=== PATIENT | female | born 2000 | race Hispanic/Latino ===

== ENCOUNTER 2023-11-10 13:11 | Emergency (ER) | payer MEDICAID, OTHER ==
[~2023-11-10] VITALS: Ht 167.6 cm; Wt 76.2 kg
[~2023-11-10 13:11] MED LIST: CEPH500B PO; POLY17PO4 PO
[2023-11-10 14:11] LABS: APPEARANCE,URINE CLEAR (CLEAR); BILIRUBIN,URINE NEGATIVE (NEGATIVE); COLOR,URINE YELLOW (YELLOW); GLUCOSE, URINE (UA) NEGATIVE (NEGATIVE); KETONES,URINE NEGATIVE (NEGATIVE); LEUKOCYTE ESTERASE ,URINE NEGATIVE Leu/uL (NEGATIVE); NITRATE,URINE NEGATIVE (NEGATIVE); OCCULT BLOOD,URINE LARGE (NEGATIVE); PH,URINE 6.5 (5.0-8.0); PROTEIN,URINE 10 mg/dL (NEGATIVE); UROBILINOGEN,URINE 0.2 mg/dL (0.2-1.0)
[2023-11-10 14:22] LABS: BACTERIA,URINE RARE /HPF (None Seen); MUCUS,URINE RARE LPF (None Seen); RBC,URINE 51-100 /HPF (0-1); SQUAMOUS EPITHELIAL CELL,UR FEW /HPF (0-2)
[2023-11-10 14:28] LABS: HCG,QUALITATIVE URINE NEGATIVE (NEGATIVE)
[2023-11-10 14:43] VITALS: BP 123/78; PULSE 78; RESP 18; O2SAT 98
== END 2023-11-10 14:44 | disposition home or self-care (01) ==
LOC: EDH 13:11
DX: N93.8 Other specified abnormal uterine and vaginal bleeding (principal); Z79.899 Other long term (current) drug therapy
CPT/HCPCS: 81001; 81025

== ENCOUNTER 2024-02-23 13:13 | Emergency (ER) | payer SELFPAY ==
[~2024-02-23] VITALS: Ht 167.6 cm; Wt 78.5 kg
[2024-02-23 13:35] LABS: SARS-CoV-2, RNA, NAAT NEGATIVE SARS CoV-2 (NEGATIVE)
[2024-02-23 13:39] LABS: INFLUENZA TYPE B Negative For Type B (NEGATIVE)
[2024-02-23 13:47] LABS: INFLUENZA TYPE A Positive For Type A (NEGATIVE)
[2024-02-23 13:58] LABS: BASOPHILS # (AUTO) 0.01 K/uL (0.00-0.20); BASOPHILS % (AUTO) 0.2 % (0.0-5.0); EOSINOPHILS # (AUTO) 0.02 K/uL (0.00-0.70); EOSINOPHILS % (AUTO) 0.3 % (0.0-8.0); HEMATOCRIT 37.8 % (36-48); IMMATURE GRANULOCYTE ABSOLUTE 0.01 K/uL (0-1); LYMPHOCYTES # (AUTO) 0.1 K/uL (1.0-4.8); LYMPHOCYTES % (AUTO) 2.2 % (21.0-51.0); MEAN CORPUSCULAR HEMOGLOBIN 32.5 pg (27.0-33.0); MEAN CORPUSCULAR HGB CONC 34.9 g/dL (32.0-36.0); MEAN CORPUSCULAR VOLUME 93.1 fL (80-100); MONOCYTES # (AUTO) 0.4 K/uL (0.1-1.0); MONOCYTES % (AUTO) 6.1 % (3.0-13.0); NEUTROPHILS # (AUTO) 5.4 K/uL (1.8-7.7); PLATELET COUNT (AUTO) 222 K/uL (130-400); RED BLOOD CELL COUNT(AUTO) 4.06 MIL/uL (4.00-5.50); RED CELL DISTRIBUTION WIDTH 11.7 % (11.0-15.5); WHITE BLOOD COUNT (AUTO) 5.9 K/uL (4.8-10.8)
[2024-02-23] MEDS: 0.9%NACL 1000ML 1,000 ML IV ONE (14:18)
[2024-02-23] MEDS: acetaMINOPHEN 500 MG TABLET PO ONE (14:18)
[2024-02-23 14:39] LABS: POTASSIUM 3.2 mmol/L (3.5-5.1)
--- NOTE | 2024-02-23 14:52 | HMCIMG ---
US OB <14 WEEKS HISTORY: early TECHNIQUE: Real-time pelvic ultrasound was performed. FINDINGS: Uterus measures 8.7 cm. heart rate 129 bpm and gestational age is 6 weeks and 1 day. Right ovary measures 1.6 cm and left ovary measures 2 cm, both with vascular flow. There is no free pelvic fluid. IMPRESSION: Single live IUP, as described.
--- NOTE | 2024-02-23 14:58 | ERN ---
General Chief Complaint: Fever Stated Complaint: CONGESTION, FEVER Time Seen by MD: 13:14 History of Present Illness Initial Comments 23-year-old female who presents with flu-like symptoms. She reports body aches, sore throat and cough for about 36 hours now. She also reports she had two home tests. She would like to get this checked. She is . LMP two months ago. No vaginal bleeding discharge or cramping. Denies medical or surgical history. Allergies: Coded Allergies: No Known Drug Allergies (Verified Allergy, Unknown, 06/19/21) Home Meds Active Scripts Polyethylene Glycol 3350 (Miralax) 17 Gm Powd.pack, 17 GM PO DAILY, #1 CANISTER Prov:FITTING,KECIASHARON AUTOMOTIVE SERVICE WRITER 06/19/21 Cephalexin Monohydrate (Keflex) 500 Mg Cap, 500 MG PO QID for 7 Days, #28 CAP Prov:FITTING,KECIASHARON AUTOMOTIVE SERVICE WRITER 06/19/21 Past Medical History Past Medical History: No Pertinent History Past Surgical History: None Female( History) : 0 Para: 0 Aborts: 0 ROS Dictation CONSTITUTIONAL: Fever HEAD/FACE: No signs of trauma. EENT: No eye pain, no blurred vision, no tearing, no double vision, no ear pain, no ear discharge, no nose pain, no nasal congestion, no throat pain, no throat swelling, no mouth pain. RESPIRATORY: Cough congestion CARDIOVASCULAR: No chest pain, no edema, no palpitations, no syncope. GASTROINTESTINAL/ABDOMINAL: No abdominal pain, no constipation, no diarrhea, no nausea, no vomiting. GENITOURINARY: No abnormal discharge, no dysuria, no frequent urination, no hematuria. No complaints of pain in the genitals. MUSCULOSKELETAL: No back pain, no gout, no joint pain, no joint swelling, no muscle pain, no muscle stiffness, no neck pain. INTEGUMENTARY: No change in color, no change in hair/nails, no dryness, no lesion, no lumps, no rash. NEUROLOGICAL/PSYCH: No anxiety, not depressed, no emotional problem, no headache, no numbness, no pre-existing deficit, no history of seizures, no tremors, no weakness. HEMATOLOGIC/LYMPHATIC: Not anemic, no history of blood clots, no apparent bleeding, no bruising, glands not swollen. All Systems Negative, Except as Noted. Physical Exam Physical Exam Dictation VITAL SIGNS: Reviewed. GENERAL APPEARANCE: Alert, oriented x3, no acute distress HEAD AND FACE: Non-traumatic. EYES: PERRL, pink conjunctivas, eyelid no trauma, anterior chamber clear. EARS: Pinnas intact and no signs of trauma or erythema. Ear canals clear and no discharge. TMs no erythema. NOSE: No discharge, no bleeding. OROPHARYNX: Mouth normal, teeth no caries, tongue pink. Pharynx clear, no erythema. Tonsils no exudates, no abscesses noted. Mucous membrane moist. NECK: Supple, non-tender, no thyromegaly, no masses, no JVD, no bruits. BREAST: Deferred. CHEST: No tenderness, no crepitus, no paradoxical movement, no retractions. LUNGS: Clear, well-ventilated, symmetric, no rales, no wheezing, no rhonchi, no stridor, good breath sounds bilaterally. HEART: Regular rate, regular rhythm, no murmur, no gallops. VASCULAR: No peripheral edema. ABDOMEN: Soft, positive bowel sounds, nondistended, no guarding, nontender, no rebound, no masses no hepatomegaly, no splenomegaly, no Albert's sign, no hernias. RECTAL: Deferred. GENITAL: Deferred. NEUROLOGICAL: Normal speech, gross motor function intact, gross sensory function intact. MUSCULOSKELETAL: Neck nontender, full range of motion, back nontender, full range of motion. EXTREMITIES: Nontender, full range of motion. SKIN: Color pink, dry, no turgor, no rash, no lacerations, no abrasions, no contusions. LYMPHATICS: Deferred. Results Laboratory and Microbiology Lab and Micro Result Laboratory Tests Test 02/23/24 13:17 02/23/24 13:41 02/23/24 13:50 Influenza Type A Antigen Positive For Type A Influenza Type B Antigen Negative For Type B SARS-CoV-2, RNA, NAAT NEGATIVE SARS CoV-2 Urine HCG, Qualitative POSITIVE (NEGATIVE) H White Blood Count 5.9 K/uL (4.8-10.8) Red Blood Count 4.06 MIL/uL (4.00-5.50) Hemoglobin 13.2 g/dL (12.0-16.0) Hematocrit 37.8 % (36-48) Mean Corpuscular Volume 93.1 fL (80-100) Mean Corpuscular Hemoglobin 32.5 pg (27.0-33.0) Mean Corpuscular Hemoglobin Concent 34.9 g/dL (32.0-36.0) Red Cell Distribution Width 11.7 % (11.0-15.5) Platelet Count 222 K/uL (130-400) Mean Platelet Volume 9.6 fL (7.5-10.5) Immature Granulocyte % (Auto) 0.2 % (0-1) Neutrophils (%) (Auto) 91.0 % (40.0-77.0) H Lymphocytes (%) (Auto) 2.2 % (21.0-51.0) L Monocytes (%) (Auto) 6.1 % (3.0-13.0) Eosinophils (%) (Auto) 0.3 % (0.0-8.0) Basophils (%) (Auto) 0.2 % (0.0-5.0) Neutrophils # (Auto) 5.4 K/uL (1.8-7.7) Lymphocytes # (Auto) 0.1 K/uL (1.0-4.8) L Monocytes # (Auto) 0.4 K/uL (0.1-1.0) Eosinophils # (Auto) 0.02 K/uL (0.00-0.70) Basophils # (Auto) 0.01 K/uL (0.00-0.20) Absolute Immature Granulocyte (auto 0.01 K/uL (0-1) Nucleated Red Blood Cells 0.0 % (0.0-0.19) White Cell Morphology Comment See comments MDM CC: Cough congestion sore throat body aches Historian: Patient Comorbidities: None Differential diagnosis, flu, viral URI, other. Of note, patient reports she had a positive test, she has no lower abdominal pain bleeding discharge or any other systemic symptom. She has not had an ultrasound yet, we will get an ultrasound. Labs no leukocytosis, she does have a left shift. No bands. HCG positive Flu A positive consistent with symptoms. Initially febrile 102.6. Pulse rate 120. Given Tylenol and a fluid bolus. Ultrasound OB less than 14 weeks shows a viable IUP, EGA six week one day. No complications. Patient has early that is unremarkable. Patient has the flu DC with symptomatic relief, we will DC with symptomatic relief ED Course Orders Procedure Category Date Status Time Covid Rna Naat LAB 02/23/24 Complete 13:16 Influenza Type A & B, LAB 02/23/24 Complete Rapid 13:16 ,Urine Test LAB 02/23/24 Complete 13:30 Us Ob <14 Weeks US 02/23/24 Resulted 13:40 Hcg,Quantitative LAB 02/23/24 In Process 13:40 Cbc With Differential LAB 02/23/24 Complete 13:40 Basic Metabolic Panel LAB 02/23/24 In Process 13:40 Acetaminophen 500mg PHA 02/23/24 Complete Tab (Tylenol 500mg T 14:00 0.9%Nacl 1000ml (Ns PHA 02/23/24 Complete 1000ml) 14:00 Current Medications Medications (Trade) Dose Ordered Sig/Foreign Route PRN Reason Start Time Stop Time Status Last Admin Dose Admin Acetaminophen (TYLenol 500MG TAB) 1,000 mg ONCE ONCE PO 02/23/24 14:00 02/23/24 14:01 DC 02/23/24 14:18 Sodium Chloride 1,000 ml @ 0 mls/hr ONCE ONCE IV 02/23/24 14:00 02/23/24 14:01 DC 02/23/24 14:18 Vital Signs Date Time Temp Pulse Resp B/P (MAP) Pulse Ox O2 Delivery O2 Flow Rate FiO2 02/23/24 14:18 102.4 02/23/24 13:14 102.6 120 18 117/79 99 Room Air 0 02/23/24 13:14 102.6 120 18 117/79 99 Room Air* 0 21 DX & DISP Disposition: Discharge Departure Impression: Primary Impression: Influenza A Additional Impression: Early stage of Condition: Stable Additional Instructions: You tested positive for influenza a, or the flu. This is causing your fever and symptoms. I recommend that you take [id number] Tylenol. You can take 1000 mg up to 4 times a day. This is safe in . Drink plenty of liquids. An electrolyte solution such as Gatorade as good choice. Your urinalysis shows a positive test. The ultrasound shows a with an estimated due date of six weeks and one day. There are no abnormalities at this time. Be sure to take a vitamin with folate daily. I recommend that you follow up with an reinforcing rod layer. Please return to the emergency department if you have any concerns. Referrals: SELF,REFERRAL (PCP) SHIRLEY VILLA DO Feb 23, 2024 14:58
[2024-02-23 15:14] LABS: CREATININE 0.7 mg/dL (0.5-1.0)
[2024-02-23 15:20] VITALS: TEMP 100.2
[2024-02-23 16:10] VITALS: BP 118/80; PULSE 91; RESP 18; TEMP 100.2; O2SAT 97
== END 2024-02-23 16:13 | disposition home or self-care (01) ==
LOC: EDH 13:13
DX: O99.519 Diseases of the respiratory system complicating pregnancy, unspecified trimester (principal); J10.1 Influenza due to other identified influenza virus with other respiratory manifestations; O26.891 Other specified pregnancy related conditions, first trimester; R10.2 Pelvic and perineal pain; Z3A.01 Less than 8 weeks gestation of pregnancy; Z20.822 Contact with and (suspected) exposure to COVID-19
CPT/HCPCS: 99284; 96360; 76801; 87635; 80048; 84702; 85025; 87804 ×2; 81025; 36415; J7030; J7120

== ENCOUNTER 2024-12-31 13:17 | Emergency (ER) | payer SELFPAY ==
[~2024-12-31] VITALS: Ht 167.6 cm; Wt 90.7 kg
[2024-12-31 13:23] VITALS: TEMP 97
[2024-12-31 14:09] LABS: IMMATURE GRANULOCYTE ABSOLUTE 0.02 K/uL (0-1); NUCLEATED RED BLOOD CELLS 0.0 % (0.0-0.19); PLATELET COUNT (AUTO) 320 K/uL (130-400); RED BLOOD CELL COUNT(AUTO) 4.23 MIL/uL (4.00-5.50); RED CELL DISTRIBUTION WIDTH 12.2 % (11.0-15.5); WHITE BLOOD COUNT (AUTO) 7.7 K/uL (4.8-10.8)
[2024-12-31 14:15] LABS: CREATININE 0.6 mg/dL (0.5-1.0); GLOMERULAR FILTR. RATE CALC 130.0 mL/min (>90); GLUCOSE,RANDOM 93.0 mg/dL (70-105); SODIUM SERUM 138.0 mmol/L (136-145); UREA NITROGEN, BLOOD 7.0 mg/dL (7-18)
[2024-12-31 14:47] LABS: INFLUENZA TYPE A Negative For Type A (NEGATIVE); INFLUENZA TYPE B Negative For Type B (NEGATIVE)
[2024-12-31 14:55] LABS: SARS-CoV-2, RNA, NAAT NEGATIVE SARS CoV-2 (NEGATIVE)
--- NOTE | 2024-12-31 15:33 | HMCIMG ---
EXAM: CR Chest, 1 View. CLINICAL HISTORY: cough COMPARISON: None provided. FINDINGS: LUNGS: There is no mass, infiltrate, or acute pulmonary abnormality. PLEURAL SPACES: No evidence of pleural effusion or pneumothorax. MEDIASTINUM: The cardiomediastinal silhouette is within normal limits. BONES: No acute osseous abnormality. IMPRESSION: No acute cardiopulmonary pathology is evident. /[place]
--- NOTE | 2024-12-31 15:37 | ERN ---
General Chief Complaint: Cough Stated Complaint: NOSEBLEED Time Seen by MD: 13:23 Time Seen by Midlevel: 13:23 Source: patient History of Present Illness Initial Comments 24-year-old female presenting to the ER with what patient believes is a nosebleed/hemoptysis. Denies any other symptoms. She does report feeling sick over the last couple of days with flu-like symptoms Allergies: Coded Allergies: No Known Drug Allergies (Verified Allergy, Unknown, 06/19/21) Home Meds Active Scripts Polyethylene Glycol 3350 (Miralax) 17 Gm Powd.pack, 17 GM PO DAILY, #1 CANISTER Prov:FITTING,CATYSHIRLEY COUNSELING CASE MANAGER 06/19/21 Cephalexin Monohydrate (Keflex) 500 Mg Cap, 500 MG PO QID for 7 Days, #28 CAP Prov:FITTING,KECIAKELIN COUNSELING CASE MANAGER 06/19/21 Past Medical History Past Medical History: No Pertinent History Past Surgical History: None Female( History) LMP: Dec 02, 2024 : 0 Para: 0 Aborts: 0 ROS Dictation CONSTITUTIONAL: Negative except for HPI HEAD/FACE: Negative except for HPI EENT: Negative except for HPI RESPIRATORY: Negative except for HPI GASTROINTESTINAL/ABDOMINAL: Negative except for HPI GENITOURINARY: Negative except for HPI MUSCULOSKELETAL: Negative except for HPI INTEGUMENTARY: Negative except for HPI NEUROLOGICAL/PSYCH: Negative except for HPI HEMATOLOGIC/LYMPHATIC: Negative except for HPI All Systems Negative, Except as noted above. 13 point review of systems assessed and all negative except for above. Physical Exam Physical Exam Dictation Vital Signs reviewed General Appearance: Alert, oriented x 3, no acute distress, well developed, nourished. Head and Face: non-traumatic. Eyes: PERRL, pink conjunctivas, eyelid no trauma, anterior chamber with arcus senilis. Ears: Pinnas intact and no signs of trauma or erythema ear canals clear and no discharge TM no erythema Nose: Dry blood to the right naris Oropharynx: Mouth normal, tongue pink, pharynx clear,no erythema, tonsils no exudates, no abscesses noted, mucous membrane moist Neck: Supple, non-tender, no thyromegaly, no masses, no JVD, no bruits Breast:Deferred Chest:No tenderness, no crepitus, no paradoxical movement, no retractions Lungs:Clear, well-ventilated, symmetric, no rales, no wheezing, no rhonchi, no stridor, good breath sounds bilaterally Heart: Regular rate, regular rhythm, no murmur, no gallops Vascular: no peripheral edema, Abdomen: Soft, positive bowel sounds, nondistended, no guarding, nontender, no rebound, no masses no hepatomegaly, no splenomegaly, no Albert's sign, no hernias. Rectal: Deferred Genital: Deferred Neurological: Normal speech, motor function intact, sensory function intact Musculoskeletal: Neck nontender, full range of motion, back nontender, full range of motion, Extremities: nontender, full range of motion Skin: Color pink, dry, no turgor, no rash, no lacerations, no abrasions, no contusions. Lymphatic: Deferred Results Laboratory and Microbiology Lab and Micro Result Laboratory Tests Test 12/31/24 14:05 12/31/24 14:12 White Blood Count 7.7 K/uL (4.8-10.8) Red Blood Count 4.23 MIL/uL (4.00-5.50) Hemoglobin 13.2 g/dL (12.0-16.0) Hematocrit 40.5 % (36-48) Mean Corpuscular Volume 95.7 fL (79-99) Mean Corpuscular Hemoglobin 31.2 pg (27.0-33.0) Mean Corpuscular Hemoglobin Concent 32.6 g/dL (32.0-36.0) Red Cell Distribution Width 12.2 % (11.0-15.5) Platelet Count 320 K/uL (130-400) Mean Platelet Volume 9.3 fL (7.5-10.5) Immature Granulocyte % (Auto) 0.3 % (0-1) Neutrophils (%) (Auto) 68.4 % (40.0-77.0) Lymphocytes (%) (Auto) 23.3 % (21.0-51.0) Monocytes (%) (Auto) 5.8 % (3.0-13.0) Eosinophils (%) (Auto) 1.8 % (0.0-8.0) Basophils (%) (Auto) 0.4 % (0.0-5.0) Neutrophils # (Auto) 5.3 K/uL (1.8-7.7) Lymphocytes # (Auto) 1.8 K/uL (1.0-4.8) Monocytes # (Auto) 0.5 K/uL (0.1-1.0) Eosinophils # (Auto) 0.14 K/uL (0.00-0.70) Basophils # (Auto) 0.03 K/uL (0.00-0.20) Absolute Immature Granulocyte (auto 0.02 K/uL (0-1) Nucleated Red Blood Cells 0.0 % (0.0-0.19) Sodium Level 138 mmol/L (136-145) Potassium Level 4.0 mmol/L (3.5-5.1) Chloride Level 102 mmol/L (101-111) Carbon Dioxide Level 31 mmol/L (21-32) Blood Urea Nitrogen 7 mg/dL (7-18) Creatinine 0.6 mg/dL (0.5-1.0) Glomerular Filtration Rate Calc 130 mL/min (>90) Random Glucose 93 mg/dL (70-105) Total Calcium 8.8 mg/dL (8.5-10.1) Serum Test, Qualitative NEGATIVE (NEGATIVE) Influenza Type A Antigen Negative For Type A Influenza Type B Antigen Negative For Type B SARS-CoV-2, RNA, NAAT NEGATIVE SARS CoV-2 Labs Reviewed?: Yes MDM MDM: Differential diagnosis: There are no social concerns with this patient. Prescription drug management Prescriptions will include: Medical management and examination interpretation discussions were had by me with other qualified healthcare professionals as indicated for the patient's care. ED Course Orders Procedure Category Date Status Time Chest 1vw RAD 12/31/24 Resulted 13:39 Covid Rna Naat LAB 12/31/24 Complete 13:39 Influenza Type A & B, LAB 12/31/24 Complete Rapid 13:39 Basic Metabolic Panel LAB 12/31/24 Complete 13:39 Cbc With Differential LAB 12/31/24 Complete 13:39 Testing, LAB 12/31/24 Complete Serum Hcg 13:55 Vital Signs Date Time Temp Pulse Resp B/P (MAP) Pulse Ox O2 Delivery O2 Flow Rate FiO2 12/31/24 13:23 97.0 59 18 110/58 99 Room Air 0 DX & DISP Disposition: Discharge Departure Impression: Primary Impression: Nosebleed Condition: Stable Additional Instructions: Your evaluation today, including physical exam, chest x-ray, and blood work was reassuring. There was no evidence of pneumonia, lung mass or other concerning findings. The small amount of blood you experience most likely related to nasal irritation or minor bleeding from your nose that was swallowed and then coughed up. Avoid forceful nose blowing or frequent picking/rubbing of the nose. If you need to cough to so gently turned out restrained. Stable hydrated. Avoid aspirin and ibuprofen. If you smoke, avoid smoking or vaping as this can worsen irritation. Use a saline nasal spray or humidifier at home to keep your nasal passages moist. You need to follow up with your primary care doctor. Referrals: SELF,REFERRAL (PCP) Time of Disposition: 15:46 I have reviewed the case, and I agree with, Diagnosis and Plan I performed the substantive portion of the visit. I have reviewed and personally made and approve the management plan that is documented in the note by myself or the RONNIE. I acknowledge for responsibility for the patient's management plan. LEYDA JONES Dec 31, 2024 15:37
[2024-12-31 15:51] VITALS: BP 152/74; PULSE 60; RESP 17; O2SAT 100
== END 2024-12-31 16:02 | disposition home or self-care (01) ==
LOC: EDH 13:17
DX: R04.0 Epistaxis (principal); Z20.822 Contact with and (suspected) exposure to COVID-19
CPT/HCPCS: 36415; 71045; 80048; 84703; 85025; 87635; 87804; 99283; 99284